=== PATIENT | male | born 1965 | race Caucasian/White ===

== ENCOUNTER 2021-12-28 14:22 | Outpatient (CLI) | payer OTHER, SELFPAY ==
--- NOTE | ~2021-12-28 | XR_ITS ---
EXAM: XR tibia fibula LT 2V DATE: 12/28/2021 14:52 HISTORY: DISORDER OF BONE proximal tibal lump x yrs . COMPARISON: None available. FINDINGS: Normal mineralization. No fracture or dislocation. Smooth nonaggressive appearing perioste al thickening along the posterior medial aspect of the tibial cortex. This may represent enthesopathy , old injury, or less likely portions of a sessile osteochondroma. No blastic lesion. Joint spaces an d physes are maintained. No erosion or periosteal change. Soft tissues within normal limits. IMPRESSION: Nonaggressive appearing tibial periosteal thickening/osteochondroma. Comparison to outsid e studies would be helpful if available. This is likely not palpable, if a palpable lesion is present , consider soft tissue ultrasound for further evaluation Reviewed, dictated and finalized at location K. IMPRESSION: Nonaggressive appearing tibial periosteal thickening/osteochondroma . Comparison to outside studies would be helpful if available. This is likely n ot palpable, if a palpable lesion is present, consider soft tissue ultrasound f or further evaluation
== END 2021-12-28 14:23 | disposition home or self-care (01) ==
LOC: CHSIMG 14:25
PROVIDERS: PCP Physician Assistant; Visit Provider Physician Assistant
DX: M89.9 Disorder of bone, unspecified (principal)
CPT/HCPCS: 73590

== ENCOUNTER 2022-12-26 13:52 | Outpatient (CLI) | payer OTHER, SELFPAY ==
--- NOTE | ~2022-12-26 | XR_ITS ---
XR chest 2V 12/26/2022 14:20 Indication: Nicotine dependence. Procedure: 2 view chest Comparison: No prior studies for comparison. Findings: Heart size is normal. There is lingular atelectasis/scarring. No acute focal pneumonia, jag ma, pleural effusion or pneumothorax. No acute osseous abnormality. Impression: 1: Lingular atelectasis/scarring. Reviewed, dictated and finalized at location B. Impression: 1: Lingular atelectasis/scarring.
== END 2022-12-26 13:53 | disposition home or self-care (01) ==
LOC: CHSIMG 13:55
PROVIDERS: PCP Physician Assistant; Visit Provider Physician Assistant
DX: F17.200 Nicotine dependence, unspecified, uncomplicated (principal); R91.8 Other nonspecific abnormal finding of lung field
CPT/HCPCS: 71046

== ENCOUNTER 2023-06-09 14:47 | Emergency (ER) | payer OTHER, SELFPAY ==
--- NOTE | ~2023-06-09 | CT_ITS ---
EXAMINATION: CT facial bones w con DATE: 06/09/2023 15:47 INDICATION: Fever. Dental abscess. TECHNIQUE: Computed tomography (CT) of the facial bones and maxillofacial region was performed with 7 5 mL Omnipaque 350 intravenous contrast. Automated exposure control and iterative reconstruction tech [employer] were employed. The dose-length product was 576.61 mGy-cm. COMPARISON: None. FINDINGS: There is mild mucosal thickening in the paranasal sinuses. Tooth 2 demonstrates a carious l esion. Tooth 7 is broken. A left mandibular molar demonstrates a carious lesion. A right mandibular m olar is broken with periapical lucencies. There is no soft tissue abscess. There are no pathologicall y enlarged lymph nodes. There is mild cervical spondylosis. IMPRESSION: 1. Dental disease. Reviewed, dictated and finalized at location E. [employer]MER [employer] IMPRESSION: 1. Dental disease.
[2023-06-09] MEDS: ACETAMINOPHEN 500 MG TABLET 1000 MG PO (15:23)
[2023-06-09 15:26] VITALS: BP 140/94; PULSE 140; RESP 20; TEMP 39.2; O2SAT 99
--- NOTE | 2023-06-09 15:36 | PC.NURSE ---
Pt to CT scan at this time.
[2023-06-09 15:42] LABS: Basophils Percent Auto 0.3 % (0.2-1.2); Eosinophils Percent Auto 0.1 % (0-4.4); Hematocrit 52.2 % (42.0-52.0); Hemoglobin 17.4 g/dL (14.0-18.0); Immature Granulocyte Absolute 0.06 K/mm3 (0.00-0.031); Immature Granulocyte Percent A 0.5 % (0-0.5); Lymphocytes Absolute Auto 0.96 K/mm3 (0.9-3.2); Mean Corpuscular HGB Conc 33.3 g/dl (32-36); Mean Corpuscular Hemoglobin 29.2 pg (26-34); Mean Corpuscular Volume 87.7 fl (80-100); Mean Platelet Volume 10.2 fl (7.4-10.4); Monocytes Absolute Auto 0.5 K/mm3 (0.1-0.6); Monocytes Percent Auto 4.5 % (2.6-8.5); Neutrophils Absolute Auto 10.4 K/mm3 (1.3-6.7); Neutrophils Percent Auto 86.6 % (45.5-73.1); Platelet Count Result 312 k/mm3 (150-375); Red Blood Count 5.95 M/mm3 (4.6-6.20); Red Cell Distribution Width 13.3 % (11.5-14.5)
[2023-06-09 15:52] LABS: Lactic Acid Reflex 1.4 mmol/L (0.7-2.0)
[2023-06-09 15:56] VITALS: BP 131/75; PULSE 130; RESP 19; TEMP 38.8; O2SAT 95
[2023-06-09 15:56] LABS: Prothrombin Time 13.4 Seconds (11.1-14.7)
[2023-06-09 15:57] VITALS: TEMP 38.8
[2023-06-09 15:57] LABS: Alanine Aminotransferase 36 U/L (6-50); Albumin Level 5.3 g/dL (3.5-5.1); Alkaline Phosphatase 94 U/L (38-126); Anion Gap 11 mmol/L (8-16); Aspartate Amino Transferase 32 U/L (17-59); Bilirubin,Total 1.3 mg/dL (0.2-1.3); Blood Urea Nitrogen 9 mg/dL (9-20); CRP 4.5 mg/dL (<1.0); Calcium 10.2 mg/dL (8.4-10.2); Carbon Dioxide 25 mmol/L (22-30); Chloride 100 mmol/L (98-107); Estimated CRCL calculation 72 ml/min; Estimated Glomerular Filt Rate > 60; Glucose 147 mg/dL (65-110); Partial Thromboplastin Time 33.9 SECONDS (22.3-36.8); Potassium 3.4 mmol/L (3.4-5.0); Sodium 136 mmol/L (137-145)
[2023-06-09 16:41] VITALS: BP 129/81; PULSE 113; RESP 20; O2SAT 97
[2023-06-09 16:46] VITALS: BP 115/80; PULSE 111; RESP 15; O2SAT 97
[2023-06-09 17:16] VITALS: BP 106/66; PULSE 106; RESP 16; O2SAT 97
--- NOTE | 2023-06-09 17:22 | ED.DENTAL ---
HPI - Dental/Oral General Chief complaint: Dental/Oral Stated complaint: dental Time Seen by Provider: 06/09/23 16:50 Source: patient Mode of arrival: ambulatory Limitations: no limitations History of Present Illness HPI Narrative: David is a 58-year-old male patient presenting to the ER today with complaints of right upper dental pain. Was seen and [facility] urgent care and was sent here to rule out sepsis. Patient's heart rate was 130s. Patient report that he has had fever over the past 2-3 days with this dental pain. Denies any URI symptoms. Related Data Allergies Allergy/AdvReac Type Severity Reaction Status Date / Time Penicillins Allergy Unknown Rash Verified 06/09/23 15:30 Review of Systems Review of Systems: Pertinent positives per HPI. Patient denies any rash, headache, visual changes, dizziness, cough, runny nose, sore throat, shortness of breath, chest pain, palpitations, nausea, vomiting, diarrhea, constipation, abdominal pain, or any urinary issues. [facility] Family History Family History Mother Hypertension Other Cerebrovascular accident Diabetes mellitus Family history of cardiovascular disease Social History Social History Alcohol intake: current Comments At the time of my signature, I reviewed and agree with the nursing past medical, surgical, social, and family history. There is no relevant family history pertinent to the patient complaint. Exam Narrative: General: Well-developed, well nourished, in no apparent distress Head: Normocephalic, atraumatic Eyes: Pupils equally round and reactive to light bilaterally, EOM intact, sclera and conjunctive clear, no discharge, lids normal Ears: TMs intact and clear, ear canals clear, no drainage, grossly hearing normal. Nose: Nares patent, no discharge, no inflammation, no sinus tenderness. Mouth: Oropharynx without lesions or masses, very poor dentition, MMM. Fracture right upper incisor with redness and swelling without obvious palpable abscess. Tender to palpation Neck: Supple, trachea midline, no enlargement of anterior or posterior cervical nodes, no thyroid masses or goiter palpable. Cardio: Regular rate and rhythm, s1 and s2 normal, no murmur appreciated. Resp: Clear to auscultation bilaterally anteriorly and posteriorly, no rhonchi, rales, wheezing or rubs Course Course Emergency Course: Portions of this record may have been created with voice recognition software. Vital Signs Vital signs: Vital Signs Temperature 39.2 C H 06/09/23 15:26 Pulse Rate 140 H 06/09/23 15:26 Respiratory Rate 20 06/09/23 15:26 Blood Pressure 140/94 H 06/09/23 15:26 Pulse Oximetry 99 06/09/23 15:26 Temperature 38.8 C H 06/09/23 15:57 Pulse Rate 130 H 06/09/23 15:56 Respiratory Rate 19 06/09/23 15:56 Blood Pressure 131/75 06/09/23 15:56 Pulse Oximetry 95 06/09/23 15:56 Vital signs reviewed MDM - Dental/Oral MDM Narrative Medical decision making narrative: At the time of visit patient is resting comfortably on the exam table. Patient appears to be acutely ill. Labs: CBC shows white blood cell count of 12.0, H&H is 17.4 and 52.2, left-sided shift, platelet count 312, PT INR and APTT within normal limits, chemistry show sodium of 136, potassium of 3.4, chloride of 100, BUN 9, creatinine 1.1, GFR greater than 60, blood glucose is 147, lactic acid is 1.4 liver function tests are within normal limits, C reactive protein elevated at 4.5. Blood cultures pending. Diagnostics: CT shows dental disease without obvious abscess. Plan: I suspect patient has a dental infection. Prescription for clindamycin was sent to the pharmacy. Supportive measures were discussed with the patient and they voiced understanding discharge instructions and agrees to treatment plan. Return precautions reviewed Differential D
== END 2023-06-09 17:49 | disposition home or self-care (01) ==
LOC: ANHED 17:32
PROVIDERS: Emergency Provider Nurse Practitioner Family; PCP Physician Assistant
DX: K04.7 Periapical abscess without sinus (principal); K02.9 Dental caries, unspecified
CPT/HCPCS: 36415; 70487; 80053; 83605; 85025; 85610; 85730; 86140; 87040; 99284; A9270; Q9967

== ENCOUNTER 2024-01-02 08:22 | Outpatient (CLI) | payer OTHER, SELFPAY ==
--- NOTE | ~2024-01-02 | US_ITS ---
EXAMINATION: US aorta DATE: 01/02/2024 08:54 INDICATION: Visible pulsations at the abdomen. TECHNIQUE: Grayscale, color Doppler, and pulsed Doppler images of the aorta and common iliac arteries were obtained. COMPARISON: None. FINDINGS: The proximal aorta measures 2.4 cm. The mid aorta measures 1.8 cm. The distal aorta measures 1.8 cm. The right common iliac artery measures 0.9 cm. The left common iliac artery measures 1.0 cm. IMPRESSION: 1. Normal caliber abdominal aorta. Reviewed, dictated and finalized at location B.
== END 2024-01-02 08:23 | disposition home or self-care (01) ==
PROVIDERS: PCP Physician Assistant; Visit Provider Physician Assistant
DX: R19.8 Other specified symptoms and signs involving the digestive system and abdomen (principal)
CPT/HCPCS: 76775